=== PATIENT | male | born 1935 | race Caucasian/White ===

== ENCOUNTER 2019-03-08 12:39 | Outpatient (CLI) | payer MEDICARE ==
--- NOTE | 2019-03-08 13:25 | RAD ---
LUMBAR SPINE SERIES TWO VIEWS: HISTORY: Back pain. FINDINGS: Vertebral bodies are normal in height. There is some very mild disk narrowing at L2-L3 with prominen t anterior and left-sided osteophytic changes at this level. The remainder of the disk spaces are fa irly well preserved. There are degenerative facet changes. No spondylolisthesis. IMPRESSION: Arthritic changes of the spine. POS: [facility]
== END 2019-03-08 12:40 | disposition home or self-care (01) ==
LOC: SCSRAD 12:39
PROVIDERS: ATTEND Family Medicine
DX: M54.5 Low back pain (principal); M47.816 Spondylosis without myelopathy or radiculopathy, lumbar region
CPT/HCPCS: 72100

== ENCOUNTER 2019-09-22 14:08 | Outpatient (CLI) | payer MEDICARE ==
--- NOTE | 2019-09-22 16:16 | MRI ---
MRI LUMBAR SPINE WITHOUT CONTRAST: INDICATIONS: Low back pain. Lumbar foraminal stenosis given as the reason. COMPARISON: None. FINDINGS: Lumbar vertebrae maintain height and alignment. Degenerative changes are noted. There are anterior os teophytes. The disk spaces are relatively well preserved. L1-L2: No disk bulge or protrusion. No central canal or foraminal stenosis. L2-L3: No significant disk bulge. Moderate facet hypertrophy. No central canal or foraminal stenosis. L3-L4: Mild disk bulge flattens the anterior thecal sac. Moderate facet and ligamentous hypertrophy. Mild central canal stenosis. L4-L5: Mild disk bulge. Facet and ligamentous hypertrophy is prominent. Mild to moderate central dilia l stenosis. Bilateral foraminal stenosis at this level. L5-S1: Mid disk bulge. Moderate facet hypertrophy. No significant central canal stenosis. Right stacy inal encroachment due to asymmetric disk bulge and facet hypertrophy. 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 Findings at the o ther levels as described. POS: OFF
== END 2019-09-22 14:09 | disposition home or self-care (01) ==
LOC: SCSMRI 14:08
PROVIDERS: ATTEND Anesthesiology Pain Medicine
DX: M48.061 Spinal stenosis, lumbar region without neurogenic claudication (principal); M51.9 Unspecified thoracic, thoracolumbar and lumbosacral intervertebral disc disorder
CPT/HCPCS: 72148

== ENCOUNTER 2019-12-01 14:11 | Outpatient (CLI) | payer MEDICARE ==
--- NOTE | 2019-12-01 14:49 | RAD ---
EXAM: Chest PA and lateral: HISTORY: Dyspnea. Patient feels food in his esophagus when eating. COMPARISON: 08/05/2017 FINDINGS: Sternotomy wires are noted. Heart: Normal cardiac silhouette Aorta: Atherosclerosis of the aortic knob Pulmonary vessels: Normal Costophrenic angles: Costophrenic angles are clear. Lungs: No consolidation or masses. Pneumothorax: No pneumothorax Osseous structures: No osseous abnormalities IMPRESSION: 1. No acute cardiopulmonary process. 2. Atherosclerosis.
== END 2019-12-01 14:12 | disposition home or self-care (01) ==
LOC: SCSRAD 14:11
PROVIDERS: ATTEND Family Medicine
DX: R06.00 Dyspnea, unspecified (principal); I70.0 Atherosclerosis of aorta
CPT/HCPCS: 71046

== ENCOUNTER 2024-02-13 12:57 | Outpatient (CLI) | payer MEDICARE | END 2024-02-13 12:58 | disposition home or self-care (01) | LOC: SCSMRI 12:57 | PROVIDERS: ATTEND Family Medicine | DX: M54.41 Lumbago with sciatica, right side (principal); M47.816 Spondylosis without myelopathy or radiculopathy, lumbar region; M48.061 Spinal stenosis, lumbar region without neurogenic claudication; S32.049A Unspecified fracture of fourth lumbar vertebra, initial encounter for closed fracture | CPT/HCPCS: 72148 ==